=== PATIENT | female | born 1955 | race Caucasian/White ===

== ENCOUNTER 2019-03-11 06:54 | Day surgery (SDC) | payer BC ==
[~2019-03-11 06:54] MED LIST: Dextrose 5%-0.45% NaCl 1,000 ML IV SCH; Midazolam 1 MG/ML 2 ML SDV ONE; Sodium Chloride 0.9% 10 ML Syringe FLUSH PRN; fentaNYL 100 MCG/2 ML SDV ONE
[2019-03-11] MEDS ORDERED: fentaNYL 100 MCG/2 ML SDV IV ONE ×4 (06:55→08:30)
[2019-03-11] MEDS ORDERED: Midazolam 1 MG/ML 2 ML SDV IV ONE ×7 (06:55→08:28)
[2019-03-11 12:36] VITALS: BP 113/63
--- NOTE | 2019-03-11 16:22 | OR ---
DATE: 03/11/2019 PROCEDURE: Total colonoscopy, NBI, and cold snare polypectomy. INSTRUMENT USED: PCF-H190DL Olympus video colonoscope. PREMEDICATIONS: Fentanyl 150 mcg intravenous, Versed 4 mg intravenous, and nasal O2 cannula. The procedure was done under pulse oximetry, BP recording, and monitoring analyst. INDICATION: The patient with high-risk family history for colon cancer. Colonoscopic examination is done for detection of any polypoid lesions and removal, endoscopic hemostasis therapy if needed. DESCRIPTION OF PROCEDURE: Initial rectal exam was unremarkable. Rigid anoscopy was normal. The colonoscope was passed up to the ileocecal area. Photographs were taken of the normal-appearing cecum identified by double-bulged ileocecal folds. The colon was found to be tortuous and redundant, technically prolonged exam. No bleeding was noted from any of the visualized areas at the commencement of the examination. No stricture. No vascular ectasia. No large isolated ulceration seen. No evidence of diffuse inflammatory bowel disease in the form of friability, contact bleeding, or ulcerations. In the area of hepatic flexure, a 1 cm sized benign-appearing sessile polyp was noted, piecemeal polypectomy was done, cold snare polypectomy, the tissue was retrieved and sent for histopathology. There was some amount of fecal material that had to be aspirated until clear, bowel preparation [place] scale 2. No bleeding was noted from any of the visualized areas at the completion of examination. Probing the proximal sides of folds and flexures using adequate distention and clearing up the stool material, withdrawal of the scope was made. Cecum to rectum time over 6 minutes. IMPRESSION: Colonic polyp. The patient tolerated the procedure well. [facility] /[id number]
== END 2019-03-11 11:13 | disposition home or self-care (01) ==
LOC: DL.ENDO 06:54
PROVIDERS: ATTEND Internal Medicine Gastroenterology
DX: Z12.11 Encounter for screening for malignant neoplasm of colon (principal); D12.3 Benign neoplasm of transverse colon; I10 Essential (primary) hypertension; I47.1 Supraventricular tachycardia; E78.5 Hyperlipidemia, unspecified; E66.09 Other obesity due to excess calories; F32.9 Major depressive disorder, single episode, unspecified; Z86.010 Personal history of colon polyps; Z80.0 Family history of malignant neoplasm of digestive organs; Z68.30 Body mass index [BMI] 30.0-30.9, adult
CPT/HCPCS: 45385; J2250; J3010; J7042

== ENCOUNTER 2020-01-30 05:54 | Day surgery (SDC) | payer BC ==
[~2020-01-30 05:54] MED LIST changes: -Dextrose 5%-0.45% NaCl 1,000 ML IV SCH; -Midazolam 1 MG/ML 2 ML SDV ONE; -fentaNYL 100 MCG/2 ML SDV ONE
[2020-01-30] MEDS ORDERED: Midazolam 1 MG/ML 2 ML SDV IV ONE ×6 (05:55→07:34)
[2020-01-30] MEDS ORDERED: fentaNYL 100 MCG/2 ML SDV IV ONE ×3 (05:55→07:20)
[2020-01-30] MEDS ORDERED: Midazolam 1 MG/ML 2 ML SDV ONE (06:10)
[2020-01-30] MEDS ORDERED: fentaNYL 100 MCG/2 ML SDV ONE (06:11)
[2020-01-30] MEDS ORDERED: Dextrose 5%-0.45% NaCl 1,000 ML IV SCH (08:00)
[2020-01-30 09:47] VITALS: BP 107/58; PULSE 79
--- NOTE | 2020-01-30 18:13 | OR ---
DATE: 01/30/2020 PROCEDURES: Total colonoscopy, NBI, and cold snare polypectomy. INSTRUMENT USED: PCF-H190DL Olympus video colonoscope. PREMEDICATIONS: Fentanyl 100 mcg intravenous, Versed 3.5 mg intravenous, nasal O2 cannula. The procedure was done under pulse oximetry, BP recording, and quality assurance monitor body. INDICATION: The patient with previous colonic villotubular adenoma and previous study inadequate due to stool contamination. Surveillance colonoscopic examination is done for detection of any polypoid lesions and removal, endoscopic hemostasis therapy if needed. DESCRIPTION OF PROCEDURE: Initial rectal exam was unremarkable. Rigid anoscopy was normal. The colonoscope was passed up to the ileocecal area. Photographs were taken of the cecum identified by double-bulged ileocecal folds. The colon was found to be tortuous and redundant, the exam a bit prolonged. There was large amount of fecal material that had to be aspirated, bowel preparation [place] scale 2 in transverse colon, 1 in right and left colon, total score 4. No bleeding was noted from any of the visualized areas at the commencement of the examination. No stricture. No vascular ectasia. No large isolated ulcerations seen. No evidence of diffuse inflammatory bowel disease in the form of friability, contact bleeding, or ulcerations. In the area of hepatic flexure, 1 cm sized benign-appearing polyp was noted, NBI views were obtained, photographs were taken, cold snare polypectomy was done, the tissue was retrieved and sent for histopathology. Photographs were taken post polypectomy site. Probing the proximal sides of folds and flexures using adequate distention and clearing up the stool material, withdrawal of the scope was made, cecum to rectum time over 6 minutes. No bleeding was noted from any of the visualized areas at the completion of examination. IMPRESSION: Colonic polyp. The patient tolerated the procedure well. [facility] [place] [facility] [place][id number]
== END 2020-01-30 10:10 | disposition home or self-care (01) ==
LOC: DL.ENDO 05:54
PROVIDERS: ATTEND Internal Medicine Gastroenterology
DX: Z12.11 Encounter for screening for malignant neoplasm of colon (principal); D12.5 Benign neoplasm of sigmoid colon
CPT/HCPCS: 45385; J2250; J3010; J7042

== ENCOUNTER 2024-01-16 00:27 | Emergency (ER) | payer MEDICARE, BC ==
[2024-01-16 01:07] VITALS: BP 113/58; PULSE 71
[2024-01-16] MEDS: Sodium Chloride 0.9% 10 ML Syringe FLUSH PRN (01:33)
[2024-01-16 01:34] LABS: BASOPHILS PERCENT AUTO 0.1 % (0.0-1.0); EOSINOPHILS PERCENT AUTO 1.3 % (1.0-3.0); HEMATOCRIT 42.7 % (37.0-47.0); HEMOGLOBIN 14.5 g/dL (12.0-16.0); LYMPHOCYTES PERCENT AUTO 10.8 % (20.5-50.1); MEAN CORPUSCULAR HEMOGLOBIN 34.2 pg (27.0-34.0); MEAN CORPUSCULAR VOLUME 100.7 fL (80-100); MONOCYTES PERCENT AUTO 7.7 % (2-8); NEUTROPHILS PERCENT AUTO 80.1 % (42.2-75.2); PLATELET COUNT,PLT 234 10^3/uL (150-450); RED BLOOD CELL COUNT 4.24 10^6/uL (4.2-5.4); WHITE BLOOD CELL COUNT,WBC 14.2 10^3/uL (5.0-10.0)
[2024-01-16 01:37] LABS: APPEARANCE,URINE CLOUDY (CLEAR); BILIRUBIN,URINE NEGATIVE (NEGATIVE); COLOR,URINE AMBER (YELLOW); GLUCOSE,URINE NEGATIVE (NEGATIVE); KETONES,URINE NEGATIVE (NEGATIVE); LEUKOCYTE ESTERASE,URINE SMALL (NEGATIVE); NITRITE,URINE NEGATIVE (NEGATIVE); OCCULT BLOOD,URINE LARGE (NEGATIVE); PH,URINE 7.5 (5.0-9.0); PROTEIN,URINE >=300 (NEGATIVE); UROBILINOGEN,URINE 0.2 mg/dL (0.2-1.0)
[2024-01-16 01:47] LABS: BACTERIA,URINE MODERATE /HPF (0-FEW/HPF); EPITHELIAL CELLS,URINE FEW /HPF (NOT SEEN); WBC,URINE PACKED /HPF (0-5/HPF)
[2024-01-16 01:48] LABS: RBC,URINE 30-40 /HPF (0-5)
[2024-01-16 01:56] LABS: A/G RATIO 1.2; ALBUMIN 3.7 g/dL (3.4-5.0); ANION GAP 12.4 mEq/L (7-13); BILIRUBIN TOTAL 0.4 mg/dL (0.2-1.0); BUN/CREATININE RATIO 24.1 (No establ ref range); CREATININE 0.83 mg/dL (0.55-1.02); EST CRCL DRUG DOSING (CG) 63.08 mL/min; POTASSIUM,K 3.4 mmol/L (3.5-5.1); PROTEIN TOTAL,TP 6.9 g/dL (6.4-8.2)
[2024-01-16 02:01] LABS: LACTIC ACID 0.9 mmol/L (0.4-2.0)
[2024-01-16] MEDS: Iopamidol 612 MG/ML 100 ML Bottle IVPUSH ONE (02:36)
[2024-01-16] MEDS: Lactated Ringers 1,000 ML IV ONE (02:41)
[2024-01-16] MEDS: Take Home: Ciprofloxacin HCl 500 MG, 6 Tab Pack PO ONE (03:46)
== END 2024-01-16 03:53 | disposition home or self-care (01) ==
LOC: DL.ED 00:27
DX: N30.01 Acute cystitis with hematuria (principal); I10 Essential (primary) hypertension; E78.00 Pure hypercholesterolemia, unspecified; Z88.1 Allergy status to other antibiotic agents; Z88.0 Allergy status to penicillin; Z88.8 Allergy status to other drugs, medicaments and biological substances; Z88.5 Allergy status to narcotic agent; Z88.6 Allergy status to analgesic agent; Z79.51 Long term (current) use of inhaled steroids; Z79.899 Other long term (current) drug therapy
CPT/HCPCS: 36415; 74177; 80053; 81001; 83605; 85025; 87086; 99284; A9270; J7120; Q9967; J3490

== ENCOUNTER 2024-09-05 20:14 | Emergency (ER) | payer MEDICARE, BC ==
[2024-09-05 20:54] LABS: BASOPHILS PERCENT AUTO 0.2 % (0.0-1.0); EOSINOPHILS PERCENT AUTO 0.2 % (1.0-3.0); HEMATOCRIT 39.6 % (37.0-47.0); HEMOGLOBIN 13.6 g/dL (12.0-16.0); LYMPHOCYTES PERCENT AUTO 4.4 % (20.5-50.1); MEAN CORPUSCULAR HEMOGLOBIN 31.5 pg (27.0-34.0); MEAN CORPUSCULAR HGB CONC 34.3 g/dL (33.0-35.0); MEAN CORPUSCULAR VOLUME 91.7 fL (80-100); MONOCYTES PERCENT AUTO 11.6 % (2-8); NEUTROPHILS PERCENT AUTO 83.6 % (42.2-75.2); PLATELET COUNT,PLT 189 10^3/uL (150-450); RED BLOOD CELL COUNT 4.32 10^6/uL (4.2-5.4)
[2024-09-05 21:16] LABS: A/G RATIO 0.79; ALANINE AMINOTRANSFERASE,ALT 62 U/L (14-59); ALBUMIN 3.3 g/dL (3.4-5.0); ALKALINE PHOSPHATASE 96 U/L (46-116); ANION GAP 16.6 mEq/L (7-13); ASPARTATE AMNIOTRANSFERASE,AST 39 U/L (15-37); BILIRUBIN TOTAL 0.6 mg/dL (0.2-1.0); BLOOD UREA NITROGEN,BUN 21 mg/dL (7-18); BUN/CREATININE RATIO 21.6 (No establ ref range); CALCIUM 8.6 mg/dL (8.5-10.1); CARBON DIOXIDE,CO2 21 mmol/L (21-32); CHLORIDE,CL 94 mmol/L (98-107); CREATININE 0.97 mg/dL (0.55-1.02); ESTIMATED GFR 63 mL/min (>=60); GLUCOSE RANDOM 113 mg/dL (70-99); MAGNESIUM 2.1 mg/dL (1.8-2.4); POTASSIUM,K 3.6 mmol/L (3.5-5.1); PROTEIN TOTAL,TP 7.5 g/dL (6.4-8.2); SODIUM,NA 128 mmol/L (136-145)
[2024-09-05 21:17] LABS: LACTIC ACID 1.1 mmol/L (0.4-2.0)
[2024-09-05] MEDS: Iopamidol 755 Mg/ML 100 ML Bottle IVPUSH ONE (21:27)
[2024-09-05 21:44] LABS: APPEARANCE,URINE CLOUDY (CLEAR); BILIRUBIN,URINE NEGATIVE (NEGATIVE); COLOR,URINE YELLOW (YELLOW); GLUCOSE,URINE NEGATIVE (NEGATIVE); KETONES,URINE 15 (NEGATIVE); LEUKOCYTE ESTERASE,URINE LARGE (NEGATIVE); NITRITE,URINE POSITIVE (NEGATIVE); OCCULT BLOOD,URINE MODERATE (NEGATIVE); PH,URINE 5.5 (5.0-9.0); PROTEIN,URINE 100 (NEGATIVE); UROBILINOGEN,URINE 0.2 mg/dL (0.2-1.0)
[2024-09-05 21:53] LABS: AMPHETAMINES,URINE NEGATIVE (NEGATIVE); BACTERIA,URINE MANY /HPF (0-FEW/HPF); BARBITURATES,URINE NEGATIVE (NEGATIVE); BENZODIAZEPINE,URINE NEGATIVE (NEGATIVE); EPITHELIAL CELLS,URINE FEW /HPF (NOT SEEN); MDMA (ECSTASY), URINE NEGATIVE (NEGATIVE); METHADONE,URINE NEGATIVE (NEGATIVE); METHAMPHETAMINES,URINE NEGATIVE (NEGATIVE); OPIATES,URINE NEGATIVE (NEGATIVE); PHENCYCLIDINE,URINE NEGATIVE (NEGATIVE); TCA,URINE POSITIVE (NEGATIVE); WBC,URINE PACKED /HPF (0-5/HPF)
[2024-09-05 21:54] LABS: AMORPHOUS SEDIMENT,URINE MODERATE /HPF (NOT SEEN); MUCUS,URINE MODERATE /LPF (NOT SEEN)
[2024-09-05 22:25] LABS: OXYCODONE,URINE NEGATIVE (NEGATIVE)
[2024-09-05] MEDS: cefTRIAXone 2 GM Vial IVPUSH ONE (22:31)
[2024-09-05 22:47] VITALS: BP 107/54; PULSE 87
== END 2024-09-05 22:42 | disposition home or self-care (01) ==
LOC: DL.ED 20:14
DX: R41.82 Altered mental status, unspecified (principal); N39.0 Urinary tract infection, site not specified; I10 Essential (primary) hypertension; E78.00 Pure hypercholesterolemia, unspecified; Z88.0 Allergy status to penicillin; Z88.8 Allergy status to other drugs, medicaments and biological substances; Z88.2 Allergy status to sulfonamides; Z88.5 Allergy status to narcotic agent; Z79.51 Long term (current) use of inhaled steroids; Z79.899 Other long term (current) drug therapy
CPT/HCPCS: 36415; 70450; 70496; 70498; 71045; 80053; 80305; 81001; 82947; 83605; 83735; 84145; 84484; 85025; 87040; 87086; 87428; 96374; 99284; 99285; J0696; Q9967; 87088; 87186